=== PATIENT | female | born 1960 | race Caucasian/White ===

== ENCOUNTER 2022-08-06 09:54 | Emergency (ER) | payer MEDICARE ==
[2022-08-06] MEDS ORDERED: Ketorolac Tromethamine 30 MG/ML VIAL ONE (11:43)
[2022-08-06] MEDS ORDERED: Dexamethasone 4 mg/ml Vial ONE (11:43)
[2022-08-06] MEDS ORDERED: Dexameth. Sod Phosp. 10 MG/ML (CHEMO USE ONLY) ONE (11:44)
== END 2022-08-06 11:54 | disposition home or self-care (01) ==
LOC: ERS 09:54
DX: M25.561 Pain in right knee (principal)
CPT/HCPCS: 96372; J1100; J1885

== ENCOUNTER 2022-11-29 14:53 | Outpatient (CLI) | payer MEDICARE | END 2022-11-29 14:54 | disposition home or self-care (01) | LOC: TBSIIMAG 14:53 | PROVIDERS: ATTEND Orthopaedic Surgery | DX: M23.91 Unspecified internal derangement of right knee (principal); S83.281A Other tear of lateral meniscus, current injury, right knee, initial encounter; M23.303 Other meniscus derangements, unspecified medial meniscus, right knee ==